=== PATIENT | male | born 1930 | race Caucasian/White ===

== ENCOUNTER 2019-12-31 00:16 | Emergency (ER) | payer MEDICARE, OTHER ==
--- NOTE | 2019-12-31 01:12 | EDM.PDOC ---
ED HPI GENERAL MEDICAL PROBLEM - General Chief Complaint: Cardiovascular Problem Stated Complaint: sob Time Seen by Provider: 12/31/19 00:25 Source of Information: Reports: Patient, Jail Records - History of Present Illness INITIAL COMMENTS - FREE TEXT/NARRATIVE: Pt presents with increased SOB and 15# weight gain over past 2 weeks Has hx/o CHF and Stage 4 renal disease Is on oxygen at 3 L normally Currently on 3 L and sats are 96% Is on Lasix 40 mg BID and was given one extra dose of 40 mg Po tonight at 2100 hrs Onset: Gradual Duration: Week(s): Location: Reports: Chest, Generalized - Related Data Allergies Allergy/AdvReac Type Severity Reaction Status Date / Time No Known Allergies Allergy Verified 01/18/19 13:41 Home Meds: Home Meds Amiodarone [Cordarone] 200 mg PO DAILY 01/18/19 [History] Aspirin [Halfprin] 81 mg PO DAILY 01/18/19 [History] Bisoprolol [Zebeta] 2.5 mg PO DAILY 01/18/19 [History] Cholecalciferol (Vitamin D3) [Vitamin D3] 1,000 units PO BID 01/18/19 [History] Dulaglutide [Trulicity] 1.5 mg SQ WEEKLY 01/18/19 [History] Febuxostat [Uloric] 80 mg PO DAILY 01/18/19 [History] Finasteride [Proscar] 5 mg PO DAILY 01/18/19 [History] Glimepiride [Amaryl] 1 mg PO BID 01/18/19 [History] Glucosamine Sulfate 500 mg PO DAILY 01/18/19 [History] Latanoprost/Pf [Latanoprost 0.005% Eye Drop] 1 drop EYEBOTH BEDTIME 01/18/19 [ History] Lisinopril 10 mg PO DAILY 01/18/19 [History] Multivitamin [Daily Anny] 1 tab PO DAILY 01/18/19 [History] [place]-3 Fatty Acids [Maxepa] 1,000 mg PO DAILY 01/18/19 [History] Omeprazole 20 mg PO ACBREAKFAST 01/18/19 [History] Tamsulosin [Flomax] 0.4 mg PO DAILY 01/18/19 [History] Warfarin [Coumadin] 2 mg PO MOWEFR@199901/18/19 [History] Warfarin [Coumadin] 3 mg PO SUTUTHSA@199901/18/19 [History] atorvaSTATin Calcium [Lipitor] 40 mg PO DAILY 01/18/19 [History] Furosemide [Lasix] 40 mg PO DAILY tablet 01/24/19 [Rx] Patient's Own Medication [Ptom] 0 each SUBCUT Q7D each 01/24/19 [Rx] Spironolactone [Aldactone] 25 mg PO DAILY #30 tablet 01/24/19 [Rx] Past Medical History HEENT History: Reports: Cataract, Glaucoma, Hard of Hearing Cardiovascular History: Reports: Afib, Arrhythmia, High Cholesterol, Heart Failure, Hypertension, Other (See Below), Pulmonary Hypertension, Pacemaker Other Cardiovascular History: SSS Respiratory History: Reports: Sleep Apnea, SOB Gastrointestinal History: Reports: Diverticulosis, GERD, Hemorrhoids Genitourinary History: Reports: BPH, Diabetic Nephropathy, Prostate Disorder, Renal Disease, Retention, Urinary Musculoskeletal History: Reports: Gout Endocrine/Metabolic History: Reports: Diabetes Mellitus, Type 3c, Hyperparathyroidism, Other (See Below), Obesity/BMI 30+ Hematologic History: Reports: Anemia, Other (See Below) Oncologic (Cancer) History: Reports: Squamous Cell Carcinoma Dermatologic History: Reports: Other (See Below) Other Dermatologic History: Actinic Keratosis - Past Surgical History HEENT Surgical History: Reports: Cataract Surgery Cardiovascular Surgical History: Reports: Pacer, Varicose GI Surgical History: Reports: Colonoscopy, Polypectomy Oncologic Surgical History: Reports: Other (See Below) Other Oncologic Surgeries/Procedures: MOHS of dorsal Left hand Social & Family History - Family History Family Medical History: Noncontributory - Tobacco Use Smoking Status *Q: Never Smoker Second Hand Smoke Exposure: No - Caffeine Use Caffeine Use: Reports: Coffee Caffeine Use Comment: 2-3 cups/day - Recreational Drug Use Recreational Drug Use: No ED ROS GENERAL - Review of Systems Review Of Systems: See Below Constitutional: Reports: No Symptoms, Weight Gain Respiratory: Reports: Shortness of Breath Cardiovascular: Reports: Edema ED EXAM, GENERAL - Physical Exam Exam: See Below General Appearance: No Apparent Distress Nose: Normal Inspection Throat/Mouth: Normal Oropharynx Neck: Supple Respiratory/Chest: Decreased Breath Sounds, Wheezing Cardiovascular: Regular Rate, Rhythm, Other (4+ edema bilaterally) GI/Abdominal: Soft, Non-Tender Extremities: Pedal Edema, Other (4+ edema bilaterally) Course - Vital Signs Last Recorded V/S: Last Vital Signs Temp 97.5 F 12/31/19 00:17 Pulse 85 12/31/19 00:17 Resp 20 12/31/19 00:17 BP 156/85 H 12/31/19 00:17 Pulse Ox 92 L 12/31/19 00:17 - Orders/Labs/Meds Orders: Active Orders 24 hr Category Date Time Status Chest 1V Frontal [CR] Stat Exams 12/31/19 00:29 Ordered Labs: Laboratory Tests 12/31/19 12/31/19 Range/Units 00:26 00:26 WBC 8.0 (4.0-10.2) K/uL RBC 4.06 L (4.33-5.41) M/uL Hgb 12.5 L (13.1-16.8) g/dL Hct 40.4 (39.0-49.0) % MCV 99.5 H (84.0-98.0) fL MCH 30.8 (28.2-33.3) pg MCHC 30.9 L (31.7-36.0) g/dL RDW 14.6 H (11.2-14.1) % Plt Count 159 (150-350) K/uL Neut % (Auto) 83.2 H (45.0-80.0) % Lymph % (Auto) 8.4 L (10.0-50.0) % [place] % (Auto) 5.1 (2.0-14.0) % Eos % (Auto) 2.8 (0.0-5.0) % Baso % (Auto) 0.5 (0.0-2.0) % Neut # (Auto) 6.63 (1.40-7.00) K/uL Lymph # (Auto) 0.67 (0.50-3.50) K/uL [place] # (Auto) 0.41 (0.00-1.00) K/uL Eos # (Auto) 0.22 (0.00-0.50) K/uL Baso # (Auto) 0.04 (0.00-0.20) K/uL Sodium 146 H (136-145) mmol/L Potassium 4.4 (3.5-5.1) mmol/L Chloride 106 (98-107) mmol/L Carbon Dioxide 33.7 H (21.0-32.0) mmol/L BUN 47 H (7-18) mg/dL Creatinine 1.50 H (0.51-1.17) mg/dL Est Cr Clr Drug Dosing 39.58 mL/min Estimated GFR (MDRD) 44 mL/min Glucose 314 H (74-106) mg/dL Calcium 9.4 (8.5-10.1) mg/dL Total Bilirubin 0.7 (0.2-1.0) mg/dL AST 16 (15-37) U/L ALT 26 (12-78) U/L Alkaline Phosphatase 103 (46-116) IU/L Total Protein 6.4 (6.4-8.2) g/dL Albumin 2.9 L (3.4-5.0) g/dL Meds: Medications Discontinued Medications Generic Name Dose Route Start Last Admin Trade Name Freq PRN Reason Stop Dose Admin Bumetanide 1 mg 12/31/19 01:02 Bumex PO 12/31/19 01:03 ONETIME ONE - Re-Assessments/Exams Free Text/Narrative Re-Assessment/Exam: 12/31/19 01:14 See lab See CXR report CXR with increased edema and possible nodule on right Increased heart size Pt given Bumex 1 mg PO in ER Remains stable on 3 L oxygen Departure - Departure Time of Disposition: 01:30 Disposition: DC/Tfer to SNF 03 Reason for Transfer *Q: Primary PCI Indicated Clinical Impression: Diastolic CHF, chronic, CKD (chronic kidney disease) stage 4, GFR 15-29 ml/min , Pulmonary edema cardiac cause Instructions: Shortness of Breath, Adult, [id number], Chronic Kidney Disease , Adult, Heart Failure Exacerbation, Edema, [id number] Referrals: PCP,None [Primary Care Provider] - Additional Instructions: Further orders per usual provider Sepsis Event Note (ED) - Evaluation Sepsis Screening Result: No Definite Risk - Focused Exam Vital Signs: Vital Signs Temp Pulse Resp BP Pulse Ox 12/31/19 00:17 97.5 F 85 20 156/85 H 92 L - My Orders Last 24 Hours: My Active Orders 12/31/19 00:29 Chest 1V Frontal [CR] Stat - Assessment/Plan Last 24 Hours: My Active Orders 12/31/19 00:29 Chest 1V Frontal [CR] Stat
[2019-12-31] MEDS: Bumetanide 1 MG Tab PO ONE (01:28)
== END 2019-12-31 02:55 ==
LOC: LL.ED 00:16
DX: I13.0 Hypertensive heart and chronic kidney disease with heart failure and stage 1 through stage 4 chronic kidney disease, or unspecified chronic kidney disease (principal); E89.1 Postprocedural hypoinsulinemia; E13.22 Other specified diabetes mellitus with diabetic chronic kidney disease; Z90.410 Acquired total absence of pancreas; N18.4 Chronic kidney disease, stage 4 (severe); I50.32 Chronic diastolic (congestive) heart failure; J81.1 Chronic pulmonary edema; E78.00 Pure hypercholesterolemia, unspecified; I48.91 Unspecified atrial fibrillation; K21.9 Gastro-esophageal reflux disease without esophagitis; N40.0 Benign prostatic hyperplasia without lower urinary tract symptoms; Z79.82 Long term (current) use of aspirin; Z79.899 Other long term (current) drug therapy
CPT/HCPCS: 36415; 71045; 80053; 85025; 99285-25; A9270-GY